=== PATIENT | male | born 1960 | race Caucasian/White ===

== ENCOUNTER 2024-04-27 13:03 | Outpatient (CLI) | payer OTHER, SELFPAY ==
--- NOTE | 2024-04-27 13:35 | USCV_ITS ---
Kana Jean Age: 63 Gender: M : 1960 Exam Date: 04/27/2024 13:43 Ordering Phys: Ese Maria MD Technologist: ANTONI Exam Location: [facility] – [place]_ Indication: HISTORY: Varicose veins. PROCEDURES: Venous duplex imaging was performed in bilateral lower extremities. Bilaterally, the common femoral, superficial femoral, profunda femoral, popliteal, posterior tibial, greater saphenous veins, and the peroneal trunk were identified and interrogated in the standard fashion. These veins were found to be easily compressible with spontaneous blood flow. Serial compression, augmentation maneuvers, and spectral Doppler flow evaluation were performed. An evaluation for venous insufficiency was also completed. FINDINGS: The veins were found to be easily compressible with spontaneous blood flow. Non pulsatile flow pattern. The right side, venous reflux was noted at the saphenofemoral junction, through the greater saphenous vein segments at the above-knee level. The reflux times where 4.2, 2.8, 2.9, 5.0 and 5.0 seconds respectively at the saphenofemoral junction, distal to the saphenofemoral junction; proximal, mid and distal greater saphenous vein segments. These venous segments were found to be very superficial, less than 1 cm deep from the surface. They were measuring 0.5 to 0.6 cm in diameter. No significant venous reflux were noted on the left side No severe venous reflux was noted in the deep veins CONCLUSIONS 1. No evidence of DVT in the above-mentioned identifiable veins. 2. Significant venous reflux were noted throughout the greater saphenous vein segments on the right side including the saphenofemoral junction. However the venous segments are found to be superficial, less than 1 cm from the surface. 3. No significant venous reflux on the left side. 4. The reflux time, venous dimensions and depth on the surface are as mentioned above Dr Zoila Whitfield MD [facility] (Electronically Signed) Final Date: 27 April 2024 20:11 S
== END 2024-04-27 13:04 | disposition home or self-care (01) ==
LOC: RAD 13:03
PROVIDERS: PCP Internal Medicine; Visit Provider Internal Medicine
DX: I86.8 Varicose veins of other specified sites (principal); I87.2 Venous insufficiency (chronic) (peripheral)
CPT/HCPCS: 93970